=== PATIENT | male | born 1985 | race Hispanic/Latino ===

== ENCOUNTER 2018-08-18 12:45 | Emergency (ER) | payer BC, SELFPAY ==
[2018-08-18] MEDS ORDERED: MORPHINE 4 MG/ML SYR ONE ×2 (13:12→14:14)
[2018-08-18] MEDS ORDERED: ONDANSETRON 4 MG/2 ML VIAL ONE (13:12)
[2018-08-18] MEDS ORDERED: NA CHLORIDE 0.9% 1,000 ML ONE (13:13)
[2018-08-18 13:19] LABS: Absolute Monocytes 0.7 K/uL (0.1-1.3); Absolute Neutrophil 13.9 K/uL (1.8-8.0); Basophils % 0.2 % (0-1.3); Eosinophils % 0.1 % (0-4.4); Hematocrit 48.8 % (39.6-49.0); Lymphocytes % 6.4 % (15.3-44.8); MCH 32.7 pg (27.0-35.0); MCV 95.7 fL (80-100); MPV 8.3 fL (7.6-11.3); Monocytes % 4.4 % (3.3-12.3)
[2018-08-18 13:38] LABS: Albumin 4.5 g/dL (3.4-5.0); Bilirubin Direct 0.1 mg/dL (0-0.2); Bilirubin Total 0.7 mg/dL (0.2-1.0); Potassium 4.2 mmol/L (3.5-5.1); Protein, Total 8.4 g/dL (6.4-8.2)
--- NOTE | 2018-08-18 14:10 | RAD REPORT ---
EXAM DESCRIPTION: CT - Abdomen Pelvis W Contrast - 08/18/2018 1:59 pm CLINICAL HISTORY: Abdominal pain/ generalized abdominal pain. COMPARISON: 2012 TECHNIQUE: Computed axial tomography of the abdomen pelvis was obtained. 100 cc Isovue-300 was admin istered intravenously. Oral contrast was not requested which limits evaluation of bowel. All CT scans are performed using dose optimization technique as appropriate and may include automated exposure control or mA/KV adjustment according to patient size. FINDINGS: Liver has a diminished attenuation consistent with fatty infiltration. Spleen, pancreas, adrenal and kidneys appear unremarkable. There is no evidence of diverticulitis. The colon is decompressed. The appendix has been removed. A tiny periumbilical hernia is noted. IMPRESSION: No acute abnormality is displayed.
[2018-08-18 14:33] LABS: Barbiturates NEGATIVE (NEGATIVE); Benzodiazepines NEGATIVE (NEGATIVE); Cocaine NEGATIVE (NEGATIVE); METHAMPHETAM NEGATIVE (NEGATIVE); Methadone NEGATIVE (NEGATIVE); Opiates POSITIVE (NEGATIVE); Phencyclidine NEGATIVE (NEGATIVE); THC Cannibis POSITIVE (NEGATIVE)
--- NOTE | 2018-08-18 15:33 | EDPHYS ---
Physician Documentation [facility] Name: Reinier Kincaid Age: 32 yrs Sex: Male : 1985 Arrival Date: 08/18/2018 Time: 12:45 Bed 23 Private MD: Axel Packer B ED Physician Trace Ott HPI: 08/18 13:00 This 32 yrs old Male presents to ER via Wheelchair with complaints of pm1 Abdominal Pain, Vomiting. 13:00 The patient presents with abdominal pain that is diffuse. Onset: The symptoms/episode pm1 began/occurred this morning. The symptoms do not radiate. Associated signs and symptoms: Pertinent positives: nausea and vomiting, Pertinent negatives: chest pain, diarrhea, fever, shortness of breath. The symptoms are described as achy. Modifying factors: The symptoms are alleviated by nothing, the symptoms are aggravated by nothing. Severity of pain: in the emergency department the pain is actually worse. The patient has experienced similar episodes in the past, multiple times, and the symptoms today are exactly the same, to when the patient was apparently diagnosed with cyclical vomiting. Patient with abdominal pain and vomiting for multiple years. Onset around 5-6 years ago. patient with multiple work up for same presentation of pain: CT scans, endoscopy, and colonoscopy which were negative. Patient smokes marijuana and was diagnosed with cyclical vomiting by the last GI doctor that he saw.. Historical: - Allergies: 12:55 Azithromycin; aj1 - Home Meds: 12:55 anxiety medication PRN [Active]; aj1 - PMHx: 12:55 None; aj1 - PSHx: 12:55 Appendectomy; Knee surgery; aj1 - Immunization history:: Flu vaccine is not up to date. - Social history:: Smoking status: Patient/guardian denies using tobacco, Patient uses street drugs, marijuana. - Ebola Screening: : Patient denies travel to an Ebola-affected area in the 21 days before illness onset. ROS: 13:00 Constitutional: Negative for fever, chills, and weight loss, Eyes: Negative for injury, pm1 pain, redness, and discharge, ENT: Negative for injury, pain, and discharge, Neck: Negative for injury, pain, and swelling, Cardiovascular: Negative for chest pain, palpitations, and edema, Respiratory: Negative for shortness of breath, cough, wheezing, and pleuritic chest pain. 13:00 Back: Negative for injury and pain, : Negative for injury, bleeding, discharge, and swelling, MS/Extremity: Negative for injury and deformity, Skin: Negative for injury, rash, and discoloration, Neuro: Negative for headache, weakness, numbness, tingling, and seizure. 13:00 Abdomen/GI: Positive for abdominal pain, nausea and vomiting, Negative for diarrhea. Exam: 13:00 Constitutional: This is a well developed, well nourished patient who is awake, alert, pm1 and in no acute distress. Head/Face: Normocephalic, atraumatic. Eyes: Pupils equal round and reactive to light, extra-ocular motions intact. Lids and lashes normal. Conjunctiva and sclera are non-icteric and not injected. Cornea within normal limits. Periorbital areas with no swelling, redness, or edema. ENT: Nares patent. No nasal discharge, no septal abnormalities noted. Tympanic membranes are normal and external auditory canals are clear. Oropharynx with no redness, swelling, or masses, exudates, or evidence of obstruction, uvula midline. Mucous membranes moist. Neck: Trachea midline, no thyromegaly or masses palpated, and no cervical lymphadenopathy. Supple, full range of motion without nuchal rigidity, or vertebral point tenderness. No Meningismus. Chest/axilla: Normal chest wall appearance and motion. Nontender with no deformity. No lesions are appreciated. Cardiovascular: Regular rate and rhythm with a normal S1 and S2. No gallops, murmurs, or rubs. Normal PMI, no JVD. No pulse deficits. Respiratory: Lungs have equal breath sounds bilaterally, clear to auscultation and percussion. No rales, rhonchi or wheezes noted. No increased work of breathing, no retractions or nasal flaring. Abdomen/GI: Soft, non-tender, with normal bowel sounds. No distension or tympany. No guarding or rebound. No evidence of tenderness throughout. Back: No spinal tenderness. No costovertebral tenderness. Full range of motion. Skin: Warm, dry with normal turgor. Normal color with no rashes, no lesions, and no evidence of cellulitis. MS/ Extremity: Pulses equal, no cyanosis. Neurovascular intact. Full, normal range of motion. 13:00 Neuro: Orientation: is normal, Motor: is normal, moves all fours. Vital Signs: 12:55 BP 157 / 113; Pulse 81; Resp 24; Pulse Ox 100% on R/A; Weight 104.33 kg (R); Height 6 aj1 ft. 3 in. (190.50 cm) (R); Pain 10/10; 13:17 BP 164 / 99; Pulse 92; Resp 20; Temp 98(O); Pulse Ox 97% on R/A; kr2 14:25 BP 135 / 91; Pulse 87; Resp 16; Pulse Ox 97% on R/A; kr2 15:30 BP 140 / 98; Pulse 76; Resp 17; Pulse Ox 99% on R/A; kr2 12:55 Body Mass Index 28.75 (104.33 kg, 190.50 cm) aj MDM: 12:56 Patient medically screened. pm1 15:31 Data reviewed: vital signs. Data interpreted: Pulse oximetry: on room air is 97 %. pm1 Interpretation: normal. Counseling: I had a detailed discussion with the patient and/or guardian regarding: the historical points, exam findings, and any diagnostic results supporting the discharge/admit diagnosis, lab results, radiology results, the need for outpatient follow up, a medical geneticist, to return to the emergency department if symptoms worsen or persist or if there are any questions or concerns that arise at home. 08/18 12:51 Order name: Basic Metabolic Panel; Complete Time: 13:40 [facility] 08/18 12:51 Order name: CBC with Diff; Complete Time: 13:40 [facility] 08/18 12:51 Order name: Creatinine for Radiology; Complete Time: 13:40 [facility] 08/18 12:51 Order name: Hepatic Function; Complete Time: 13:40 [facility] 08/18 12:51 Order name: Lipase; Complete Time: 13:40 [facility] 08/18 12:59 Order name: UDS; Complete Time: 15:06 pm 08/18 12:51 Order name: IV Saline Lock; Complete Time: 12:57 [facility] 08/18 13:03 Order name: CT Abd/Pelvis - W/Contrast: IV contrast only; Complete Time: 14:15 pm 08/18 14:16 Order name: Urine Dipstick--Ancillary (enter results) 08/18 12:51 Order name: Labs collected and sent; Complete Time: 12:57 aj1 08/18 12:59 Order name: Urine Dipstick-Ancillary (obtain specimen); Complete Time: 14:24 pm1 Administered Medications: 13:14 Drug: NS 0.9% 1000 ml Route: IV; Rate: 1000 ml; Site: right antecubital; kr2 14:24 Follow up: Response: No adverse reaction; IV Status: Completed infusion kr2 13:15 Drug: Zofran 4 mg Route: IVP; Site: right antecubital; kr2 14:08 Follow up: Response: No adverse reaction; Nausea is decreased kr2 13:15 Drug: morphine 4 mg Route: IVP; Site: right antecubital; kr2 13:30 Follow up: Response: No adverse reaction; Pain is decreased kr2 14:08 Drug: morphine 4 mg Route: IVP; Site: right antecubital; kr2 14:24 Follow up: Response: No adverse reaction; Pain is decreased kr2 15:33 Drug: TORadol 30 mg Route: IVP; Site: right antecubital; kr2 15:47 Follow up: Response: No adverse reaction; Pain is decreased kr2 Disposition: 16:27 Co-signature as Attending Physician, Trace Ott MD I agree with the assessment and kdr plan of care. Disposition: 08/18/18 15:32 Discharged to Home. Impression: Unspecified abdominal pain, Vomiting, Cannabis abuse. - Condition is Stable. - Discharge Instructions: Abdominal Pain, Adult, Cannabis Use Disorder, Vomiting, Child. - Prescriptions for Bentyl 20 mg Oral Tablet - take 1 tablet by ORAL route every 6 hours As needed; 20 tablet. Zofran 4 mg Oral Tablet - take 1 tablet by ORAL route every 8 hours As needed; 20 tablet. - Medication Reconciliation Form, Thank You Letter, Antibiotic Education form. - Follow up: Jose Alberto Tate MD; When: 2 - 3 days; Reason: Recheck today's complaints, Continuance of care, Re-evaluation by your physician. Follow up: Axel Packer MD; When: 2 - 3 days; Reason: Recheck today's complaints, Continuance of care, Re-evaluation by your physician. - Problem is new. - Symptoms have improved. Signatures: Dispatcher [employer] EDMS Yamilet Warner RN RN aj1 Trace Ott MD MD kdr Nile Rolle, [employer] MANAGER pm1 Izabela Trinh, RN RN kr2 Corrections: (The following items were deleted from the chart) 15:50 15:32 08/18/2018 15:32 Discharged to Home. Impression: Unspecified abdominal pain; kr2 Vomiting; Cannabis abuse. Condition is Stable. Forms are Medication Reconciliation Form, Thank You Letter, Antibiotic Education, Prescription Opioid Use. Follow up: Jose Alberto Tate; When: 2 - 3 days; Reason: Recheck today's complaints, Continuance of care, Re-evaluation by your physician. Follow up: Axel Packer; When: 2 - 3 days; Reason: Recheck today's complaints, Continuance of care, Re-evaluation by your physician. Problem is new. Symptoms have improved. pm1
--- NOTE | 2018-08-18 15:33 | ER ---
Nurse's Notes [facility] Name: Reinier Kincaid Age: 32 yrs Sex: Male : 1985 Arrival Date: 08/18/2018 Time: 12:45 Bed 23 Private MD: Axel Packer B Diagnosis: Unspecified abdominal pain;Vomiting;Cannabis abuse Presentation: 08/18 12:52 Presenting complaint: Patient states: Severe, diffuse abdominal pain since 0300 this aj1 morning. Patient is restless, moaning, guarding. Reports N/V. Denies diarrhea. States that he has had episodes like this several times, but they have never been able to diagnose what is wrong with him. Denies fever. Transition of care: patient was not received from another setting of care. Onset of symptoms was August 18, 2018 at 03:00. Risk Assessment: Do you want to hurt yourself or someone else? Patient reports no desire to harm self or others. Initial Sepsis Screen: Does the patient meet any 2 criteria? No. Patient's initial sepsis screen is negative. Does the patient have a suspected source of infection? Yes: Acute abdominal pain. Care prior to arrival: None. 12:52 Method Of Arrival: Wheelchair aj1 12:52 Acuity: DISHA 3 aj1 Triage Assessment: 12:55 General: Appears uncomfortable, Behavior is cooperative, anxious, restless. Pain: aj1 Complains of pain in abdomen diffusely Pain currently is 10 out of 10 on a pain scale. Noted to be grimacing, guarding, moaning, restless. Neuro: Level of Consciousness is awake, alert, obeys commands. Cardiovascular: Patient's skin is warm and dry. Respiratory: Airway is patent Respiratory effort is even, unlabored, Respiratory pattern is regular, symmetrical. GI: Reports lower abdominal pain, upper abdominal pain, nausea, vomiting, Patient currently denies diarrhea. Historical: - Allergies: 12:55 Azithromycin; aj1 - Home Meds: 12:55 anxiety medication PRN [Active]; aj1 - PMHx: 12:55 None; aj1 - PSHx: 12:55 Appendectomy; Knee surgery; aj1 - Immunization history:: Flu vaccine is not up to date. - Social history:: Smoking status: Patient/guardian denies using tobacco, Patient uses street drugs, marijuana. - Ebola Screening: : Patient denies travel to an Ebola-affected area in the 21 days before illness onset. Screenin:18 Abuse screen: Denies threats or abuse. Denies injuries from another. Nutritional kr2 screening: No deficits noted. Tuberculosis screening: No symptoms or risk factors identified. Fall Risk None identified. Assessment: 12:58 General: Appears distressed, uncomfortable, Behavior is cooperative, restless, Denies ss fever, chills. Pain: Complains of pain in abdomen diffusely Pain currently is 10 out of 10 on a pain scale. Pain began 0300 this AM Is continuous. Neuro: Level of Consciousness is awake, alert, obeys commands, Oriented to person, place, time, situation. Cardiovascular: Capillary refill < 3 seconds is brisk in bilateral fingers. Respiratory: Airway is patent Respiratory effort is even, unlabored, Respiratory pattern is regular, symmetrical, Denies cough, shortness of breath. GI: Abdomen is flat, non-distended, Abd is soft X 4 quads Reports lower abdominal pain, upper abdominal pain, nausea, vomiting, since 0300 this AM. EENT: Oral mucosa is moist. Derm: Skin is intact, is healthy with good turgor, Skin is dry, Skin is pink, warm \T\ dry. normal. Musculoskeletal: Circulation, motion, and sensation intact. Range of motion: intact in all extremities, Swelling absent. 13:18 GI: Bowel sounds present X 4 quads. kr2 14:00 Reassessment: Patient complains of continued pain, provider notified. kr2 14:24 Reassessment: Patient appears in no apparent distress at this time. Patient and/or kr2 family updated on plan of care and expected duration. Pain level reassessed. Patient is alert, oriented x 3, equal unlabored respirations, skin warm/dry/pink. Patient states symptoms have improved. 15:30 Reassessment: Patient appears in no apparent distress at this time. Patient and/or kr2 family updated on plan of care and expected duration. Pain level reassessed. Patient is alert, oriented x 3, equal unlabored respirations, skin warm/dry/pink. Provider at bedside at this time. Vital Signs: 12:55 BP 157 / 113; Pulse 81; Resp 24; Pulse Ox 100% on R/A; Weight 104.33 kg (R); Height 6 aj1 ft. 3 in. (190.50 cm) (R); Pain 10/10; 13:17 BP 164 / 99; Pulse 92; Resp 20; Temp 98(O); Pulse Ox 97% on R/A; kr2 14:25 BP 135 / 91; Pulse 87; Resp 16; Pulse Ox 97% on R/A; kr2 15:30 BP 140 / 98; Pulse 76; Resp 17; Pulse Ox 99% on R/A; kr2 12:55 Body Mass Index 28.75 (104.33 kg, 190.50 cm) aj1 ED Course: 12:45 Patient arrived in ED. sb2 12:46 Axel Packer MD is Private Physician. sb2 12:53 Triage completed. aj1 12:55 Arm band placed on Patient placed in an exam room. aj1 12:56 Nile Rolle NP is PHCP. pm1 12:56 Trace Ott MD is Attending Physician. pm1 12:58 Inserted saline lock: 20 gauge in right antecubital area, using aseptic technique. ss Blood collected. 13:08 Radiology exam delayed due to lab results not completed at this time. (BUN/Creatinine). vr 13:11 Izabela Trinh, RN is Primary Nurse. kr2 13:18 Patient has correct armband on for positive identification. Placed in gown. Bed in low kr2 position. Call light in reach. Side rails up X2. Adult w/ patient. Pulse ox on. NIBP on. Door closed. Warm blanket given. Head of bed elevated. 13:36 Radiology exam delayed due to lab results not completed at this time. (BUN/Creatinine). vr 13:55 Urine collected: clean catch specimen, clear, dale colored, Amount Voided: 60mL Legal jp3 drug screen obtained per protocol. 13:59 CT Abd/Pelvis - W/Contrast: IV contrast only In Process Unspecified. EDMS 14:50 Urine Dipstick--Ancillary (enter results) Sent. jp3 15:31 Jose Alberto Tate MD is Referral Physician. pm1 15:32 Axel Packer MD is Referral Physician. pm1 15:48 No provider procedures requiring assistance completed. IV discontinued, intact, kr2 bleeding controlled, No redness/swelling at site. Pressure dressing applied. Administered Medications: 13:14 Drug: NS 0.9% 1000 ml Route: IV; Rate: 1000 ml; Site: right antecubital; kr2 14:24 Follow up: Response: No adverse reaction; IV Status: Completed infusion kr2 13:15 Drug: Zofran 4 mg Route: IVP; Site: right antecubital; kr2 14:08 Follow up: Response: No adverse reaction; Nausea is decreased kr2 13:15 Drug: morphine 4 mg Route: IVP; Site: right antecubital; kr2 13:30 Follow up: Response: No adverse reaction; Pain is decreased kr2 14:08 Drug: morphine 4 mg Route: IVP; Site: right antecubital; kr2 14:24 Follow up: Response: No adverse reaction; Pain is decreased kr2 15:33 Drug: TORadol 30 mg Route: IVP; Site: right antecubital; kr2 15:47 Follow up: Response: No adverse reaction; Pain is decreased kr2 Outcome: 15:32 Discharge ordered by MD. pm1 15:49 Discharged to home via wheelchair, with family. kr2 15:49 Condition: stable 15:49 Discharge instructions given to patient, family, Instructed on discharge instructions, follow up and referral plans. medication usage, Demonstrated understanding of instructions, follow-up care, medications, Prescriptions given X 2. 15:50 Patient left the ED. kr2 Signatures: Dispatcher [employer] EDMS Yamilet Warner RN RN aj1 Varsha Sanches RN RN ss Davis, Victoria vr Marinas, Patrick, ELECTRICAL INTEGRATOR ELECTRICAL INTEGRATOR pm1 Izabela Trinh RN RN kr2 Yisel Lee2 Yair Tripp jp3 Corrections: (The following items were deleted from the chart) 14:17 14:16 Urine collected: clean catch specimen, clear, dale colored, Amount Voided: 60mL jp3 Legal drug screen obtained per protocol. jp3 15:50 13:17 BP 164 / 99; Pulse 92bpm; Resp 20bpm; Pulse Ox 97% RA; kr2 kr2
[2018-08-18] MEDS ORDERED: KETOROLAC 30 MG/ML INJ ONE (15:39)
[2018-08-18 16:04] VITALS: TEMP 98
[2018-08-18 16:06] VITALS: BP 140/98; O2SAT 99
[2018-08-18 17:55] LABS: Urine Blood 1+ (NEG); Urine Glucose NEGATIVE (NEG); Urine Protein 1+ (NEG)
== END 2018-08-18 15:50 | disposition home or self-care (01) ==
LOC: ER 12:45
DX: F12.10 Cannabis abuse, uncomplicated (principal); R11.10 Vomiting, unspecified; Z88.3 Allergy status to other anti-infective agents
CPT/HCPCS: 36415; 74177; 80048; 80076; 80307; 81003; 83690; 85025; 96361; 96374; 96375; 99284; J2405; J7030; Q9967